=== PATIENT | male | born 1935 | race Caucasian/White ===

== ENCOUNTER 2017-10-20 19:35 | Inpatient (IN) | payer MEDICARE, BC ==
[~2017-10-20] VITALS: Ht 167.6 cm; Wt 67.4 kg
[~2017-10-20 19:35] MED LIST: AMLO5TAB22 PO; AUGM875T PO; BEDSMIS4; CARV3.12 PO; CYAN1000P IM; FISH120014 PO; LISI-366 PO; PLAV75TA PO; SIMV10 PO; TAMS0.4C67 PO
[2017-10-20] MEDS ORDERED: SODIUM CHLOR 0.9% 1000 ML INJ 1,000 ML IV SCH (19:36)
[2017-10-20 19:39] VITALS: BP 187/104; PULSE 97; RESP 18; TEMP 98.4; O2SAT 97
[2017-10-20] MEDS ORDERED: SODIUM CHLORIDE 0.9% FLUSH 10 ML FLUSH IV FLUSH PRN ×2 (19:45→23:00)
[2017-10-20 20:06] VITALS: BP 175/94; PULSE 100; RESP 18; O2SAT 99
[2017-10-20 20:13] LABS: AUTOMATED NEUTROPHIL # 14.6 TH/MM3 (1.8-7.7); BASOPHIL # 0.1 TH/MM3 (0-0.2); BASOPHIL % 0.6 % (0.0-2.0); EOSINOPHIL % 0.1 % (0.0-4.0); HEMATOCRIT 45.9 % (39.0-51.0); HEMOGLOBIN 16.1 GM/DL (13.0-17.0); LYMPH % 5.4 % (9.0-44.0); LYMPHOCYTE # 0.9 TH/MM3 (1.0-4.8); MEAN CELL VOLUME 91.2 FL (80.0-100.0); MEAN CORPUSCULAR HGB CONC 35.2 % (32.0-36.0); MEAN PLATELET VOLUME 8.9 FL (7.0-11.0); MONO % 3.8 % (0.0-8.0); MONOCYTE # 0.6 TH/MM3 (0-0.9); NEUT % 90.1 % (16.0-70.0); PLATELET COUNT 263 TH/MM3 (150-450); RED BLOOD COUNT 5.03 MIL/MM3 (4.50-5.90); RED CELL DISTRIBUTION WIDTH 12.4 % (11.6-17.2); WHITE BLOOD COUNT 16.2 TH/MM3 (4.0-11.0)
[2017-10-20 20:21] LABS: CHLORIDE 99 MEQ/L (98-107); SODIUM (NA) 135 MEQ/L (136-145)
[2017-10-20 20:24] LABS: ALBUMIN 3.8 GM/DL (3.4-5.0); BICARBONATE 27.2 MEQ/L (21.0-32.0); CALCIUM 8.9 MG/DL (8.5-10.1); GLUCOSE,RANDOM 105 MG/DL (74-106)
[2017-10-20 20:25] LABS: BLOOD UREA NITROGEN 12 MG/DL (7-18)
[2017-10-20 20:27] LABS: ALT (GPT) 18 U/L (12-78); AST (GOT) 11 U/L (15-37)
[2017-10-20 20:28] LABS: CREATININE 0.88 MG/DL (0.60-1.30); GLOMERULAR FILTRATION RATE 83 ML/MIN (>89)
[2017-10-20 20:29] LABS: TOTAL BILIRUBIN ADULT 0.5 MG/DL (0.2-1.0); TOTAL PROTEIN 7.8 GM/DL (6.4-8.2)
[2017-10-20 20:30] LABS: ALKALINE PHOSPHATASE 85 U/L (45-117)
[2017-10-20 20:33] LABS: TROPONIN I LESS THAN 0.02 NG/ML (0.02-0.05)
[2017-10-20] MEDS ORDERED: ALBUAER3 INH (20:38)
[2017-10-20] MEDS ORDERED: AMLO5TAB2 PO (20:38)
[2017-10-20] MEDS ORDERED: SIMV10TA PO (20:38)
[2017-10-20] MEDS ORDERED: ASPI-516 CHEW (20:38)
[2017-10-20] MEDS ORDERED: CARV3.12 PO (20:38)
[2017-10-20] MEDS ORDERED: LISI-515 PO (20:38)
[2017-10-20] MEDS ORDERED: TAMS5CAP PO (20:38)
[2017-10-20 20:42] LABS: BILIRUBIN, URINE NEG (NEG); BLOOD, URINE TRACE (NEG); GLUCOSE,URINE NEG (NEG); KETONE, URINE TRACE mg/dL (NEG); NITRITE,URINE NEG (NEG); URINE COLOR YELLOW (YELLW/STRAW); URINE LEUKOCYTE ESTERASE NEG (NEG)
[2017-10-20] MEDS ORDERED: LEVOFLOXACIN 500 MG PREMIX INJ 100 ML IV ONE (21:00)
[2017-10-20 21:03] LABS: AMORPHOUS SEDIMENT, URINE SMALL; RBC, URINE 0-3 /hpf (0-3); SQUAMOUS EPITHELIAL CELL URINE 0-5 /hpf (0-5); WBC, URINE 0-2 /hpf (0-5)
[2017-10-20 21:10] LABS: INTERNATIONAL NORMALIZED RATIO 1.1 RATIO; PROTHROMBIN TIME - PATIENT 10.7 SEC (9.8-11.6)
--- NOTE | 2017-10-20 22:06 | RADRPT ---
EXAM DATE/TIME: 10/20/2017 21:50 [facility] COMPARISON: CHEST SINGLE AP, March 12, 2016, 7:54. INDICATIONS : Syncopal episode. MEDICAL HISTORY : normal pressure hydrocephalus, hypertension, pulmonary sarcoidosis SURGICAL HISTORY : Stents, Shunt. ENCOUNTER: Initial ACUITY: 1 day PAIN SCORE: 0/10 LOCATION: Bilateral chest FINDINGS: Cardiomegaly. Left basilar linear scarring. Minimal linear scarring right upper lobe. Osseous structu res are intact. CONCLUSION: No acute disease. Rod Singh MD on October 20, 2017 at 22:05 Board Certified Radiologist. This report was verified electronically.
[2017-10-20 22:46] VITALS: BP 142/68; PULSE 89; RESP 16; O2SAT 98
[2017-10-20] MEDS ORDERED: NALOXONE HCL 0.4 MG/ML AMP IV PUSH PRN (23:00)
[2017-10-21] VITALS: BP 160/76; PULSE 74; RESP 18; TEMP 97.2; O2SAT 94
--- NOTE | 2017-10-21 00:15 | PD ---
HPI . Generalized weakness Chief Complaint: General Weakness Time Seen by Provider: 19:36 Travel History International Travel<30 days: No Contact w/Intl Traveler<30days: No Traveled to known affect area: No History of Present Illness HPI 8-year-old male presents with having discomfort, generalized weakness, unable to raise himself up off a chair, and suprapubic complaint of pain. Patient has expressive aphasia and mild dementia has difficulty communicating. The above is as per hand signals and also communication with patient's . Patient and live in assisted living facility, patient usually cares for himself quite well and is able to ambulate easily. Today's weakness is a new development. No documented fever PFSH Past Medical History Narrative Medical Past medical history reviewed Asthma: No Heart Rhythm Problems: No Cancer: No Cardiovascular Problems: Yes (LBBB) High Cholesterol: No Chest Pain: No Congestive Heart Failure: No COPD: No Diabetes: No Diminished Hearing: Yes (EGEGIK) Hepatitis: No Hiatal Hernia: No Hypertension: Yes Medical other: Yes (UNBALANCED ,FALLING) Musculoskeletal: No Neurologic: Yes (NORMAL PRESSURE HYDROCEPHALUS ) Psychiatric: No Reproductive: No Respiratory: Yes (PULMONARY SARCOIDOSIS) Sleep Apnea: No Thyroid Disease: No Tetanus Vaccination: Unknown ?: Not Past Surgical History Abdominal Surgery: No Cardiac Surgery: No Ear Surgery: No Endocrine Surgery: No Eye Surgery: No Genitourinary Surgery: No Gynecologic Surgery: No Neurologic Surgery: No Oral Surgery: No Pacemaker: No Thoracic Surgery: No Other Surgery: Yes (SHUNT ) Social History Alcohol Use: No Tobacco Use: No Substance Use: No Allergies-Medications (Allergen,Severity, Reaction): Coded Allergies: MRI PRECAUTION (Verified Allergy, Unknown, shunt, 03/12/16) Reported Meds & Prescriptions Reported Meds & Active Scripts Active Reported Aspirin 81 Mg Chew 81 Mg CHEW DAILY Proair Hfa 8.5 GM Inh (Albuterol Sulfate) 90 Mcg/Act Aer 2 Puff INH Q4-6H PRN 108 mcg/actuation Simvastatin 10 Mg Tab 10 Mg PO DAILY Lisinopril 20 Mg Tab 20 Mg PO DAILY Flomax (Tamsulosin HCl) 0.4 Mg Cap 0.4 Mg PO HS Carvedilol 3.125 Mg Tab 3.125 Mg PO BID Amlodipine (Amlodipine Besylate) 5 Mg Tab 5 Mg PO DAILY Narrative Medication Allergies and medications reviewed. MRI precaution noted Review of Systems General / Constitutional: No: Fever Eyes: No: Visual changes HENT: No: Headaches Cardiovascular: No: Chest Pain or Discomfort Respiratory: No: Shortness of Breath Gastrointestinal: No: Abdominal Pain Genitourinary: No: Dysuria Musculoskeletal: Positive: Weakness, No: Pain Skin: No Rash Neurologic: No: Weakness Psychiatric: No: Depression Endocrine: No: Polydipsia Hematologic/Lymphatic: No: Easy Bruising Physical Exam Narrative GENERAL: Awake and alert, pleasant, a phasic, slightly confused. Vital signs afebrile normal and stable SKIN: Warm and dry. Color is normal deficit sinus pallor HEAD: Atraumatic. Normocephalic. EYES: Pupils equal and round. No scleral icterus. No injection or drainage. ENT: No nasal bleeding or discharge. Mucous membranes pink and moist. NECK: Trachea midline. No JVD. Supple nontender full range of motion CARDIOVASCULAR: Regular rate and rhythm. S1-S2 no murmurs rubs gallops RESPIRATORY: No accessory muscle use. Clear to auscultation. Breath sounds equal bilaterally. GASTROINTESTINAL: Abdomen soft, non-tender, nondistended. Hepatic and splenic margins not palpable. MUSCULOSKELETAL: Extremities without clubbing, cyanosis, or edema. No obvious deformities. NEUROLOGICAL: Awake and alert. Slightly confused, also communicating via hand signals and motioning secondary to aphasia, otherwise no gross focal deficits PSYCHIATRIC: Appropriate mood and affect; pleasant Data Data Last Documented VS Vital Signs Date Time Temp Pulse Resp B/P (MAP) Pulse Ox O2 Delivery O2 Flow Rate FiO2 10/20/17 22:46 89 16 142/68 (92) 98 Room Air 10/20/17 19:39 98.4 Orders Orders Electrocardiogram (10/20/17 19:36) Ammonia (10/20/17 19:36) Complete Blood Count With Diff (10/20/17 19:36) Comprehensive Metabolic Panel (10/20/17 19:36) Creatine Kinase (Cpk) (10/20/17 19:36) Prothrombin Time / Inr (Pt) (10/20/17 19:36) Act Partial Throm Time (Ptt) (10/20/17 19:36) Troponin I (10/20/17 19:36) Thyroid Stimulating Hormone (10/20/17 19:36) Urinalysis - C+S If Indicated (10/20/17 19:36) Blood Culture (10/20/17 19:36) Chest, Single Ap (10/20/17 19:36) Blood Glucose (10/20/17 19:36) Ecg Monitoring (10/20/17 19:36) Iv Access Insert/Monitor (10/20/17 19:36) Oximetry (10/20/17 19:36) Sodium Chloride 0.9% Flush (Ns Flush) (10/20/17 19:45) Sodium Chlor 0.9% 1000 Ml Inj (Ns 1000 M (10/20/17 19:36) B-Type Natriuretic Peptide (10/20/17 19:36) Lactic Acid (10/20/17 19:36) Levofloxacin 500 Mg Premix Inj (Levaquin (10/20/17 21:00) Admit Order (Ed Use Only) (10/20/17 22:53) Place In Observation (10/20/17 ) Vital Signs (Adult) Q4H (10/20/17 22:52) Activity Oob Ad Darcy (10/20/17 22:52) Intake + Output ALEKSANDR.QSHIFT (10/20/17 22:52) Diet Heart Healthy (10/21/17 Breakfast) Sodium Chlor 0.9% 1000 Ml Inj (Ns 1000 M (10/20/17 22:52) Sodium Chloride 0.9% Flush (Ns Flush) (10/20/17 23:00) Sodium Chloride 0.9% Flush (Ns Flush) (10/21/17 09:00) Basic Metabolic Panel (Bmp) (10/21/17 06:00) Complete Blood Count With Diff (10/21/17 06:00) Naloxone Inj (Narcan Inj) (10/20/17 23:00) Consult Pt Eval & Treat (10/20/17 22:52) Labs Laboratory Tests Test 10/20/17 20:00 10/20/17 20:20 White Blood Count 16.2 TH/MM3 Red Blood Count 5.03 MIL/MM3 Hemoglobin 16.1 GM/DL Hematocrit 45.9 % Mean Corpuscular Volume 91.2 FL Mean Corpuscular Hemoglobin 32.0 PG Mean Corpuscular Hemoglobin Concent 35.2 % Red Cell Distribution Width 12.4 % Platelet Count 263 TH/MM3 Mean Platelet Volume 8.9 FL Neutrophils (%) (Auto) 90.1 % Lymphocytes (%) (Auto) 5.4 % Monocytes (%) (Auto) 3.8 % Eosinophils (%) (Auto) 0.1 % Basophils (%) (Auto) 0.6 % Neutrophils # (Auto) 14.6 TH/MM3 Lymphocytes # (Auto) 0.9 TH/MM3 Monocytes # (Auto) 0.6 TH/MM3 Eosinophils # (Auto) 0.0 TH/MM3 Basophils # (Auto) 0.1 TH/MM3 CBC Comment AUTO DIFF Differential Comment AUTO DIFF CONFIRMED Platelet Estimate NORMAL Platelet Morphology Comment NORMAL Red Cell Morphology Comment NORMAL Prothrombin Time 10.7 SEC Prothromb Time International Ratio 1.1 RATIO Activated Partial Thromboplast Time 27.3 SEC Blood Urea Nitrogen 12 MG/DL Creatinine 0.88 MG/DL Random Glucose 105 MG/DL Total Protein 7.8 GM/DL Albumin 3.8 GM/DL Calcium Level 8.9 MG/DL Alkaline Phosphatase 85 U/L Aspartate Amino Transf (AST/SGOT) 11 U/L Alanine Aminotransferase (ALT/SGPT) 18 U/L Total Bilirubin 0.5 MG/DL Sodium Level 135 MEQ/L Potassium Level 3.5 MEQ/L Chloride Level 99 MEQ/L Carbon Dioxide Level 27.2 MEQ/L Anion Gap 9 MEQ/L Estimat Glomerular Filtration Rate 83 ML/MIN Lactic Acid Level 1.3 mmol/L Ammonia 16 MCMOL/L Total Creatine Kinase 60 U/L Troponin I LESS THAN 0.02 NG/ML B-Type Natriuretic Peptide 144 PG/ML Thyroid Stimulating Hormone 3rd Gen 0.837 uIU/ML Urine Collection Type CATH Urine Color YELLOW Urine Turbidity SL CLOUDY Urine pH 8.0 Urine Specific [place] 1.015 Urine Protein NEG mg/dL Urine Glucose (UA) NEG mg/dL Urine Ketones TRACE mg/dL Urine Occult Blood TRACE Urine Nitrite NEG Urine Bilirubin NEG Urine Urobilinogen 0.2 MG/DL Urine Leukocyte Esterase NEG Urine RBC 0-3 /hpf Urine WBC 0-2 /hpf Urine Squamous Epithelial Cells 0-5 /hpf Urine Amorphous Sediment SMALL Microscopic Urinalysis Comment CATH-CULT NOT IND MDM Medical Decision Making Medical Screen Exam Complete: Yes Emergency Medical Condition: Yes Medical Record Reviewed: Yes Differential Diagnosis Generalized weakness, urinary retention, infection Narrative Course Patient's limited examination reviewed, patient has elevated white blood cell count 16. Schafer catheter placed patient had greater than 1000 postvoid residual volume. Patient treated empirically treated with Levaquin secondary to having recent respiratory complaints and urinary retention and possible urinary tract infection. Perusal of patient's medical record revealed patient has a medical shunt, CT head reveals good shunt placement with no significant ventriculomegaly consistent with adequate shunt functioning Diagnosis Primary Impression: Leukocytosis Qualified Codes: D72.829 - Elevated white blood cell count, unspecified Additional Impressions: Weakness Urinary retention Admitting Information Admitting Physician Requests: Jone Paula MD Oct 21, 2017 00:15
[2017-10-21 00:16] VITALS: BP 142/65; PULSE 89; RESP 16; O2SAT 99
--- NOTE | 2017-10-21 00:53 | RADRPT ---
EXAM DATE/TIME: 10/21/2017 00:30 [facility] COMPARISON: CT BRAIN W/O CONTRAST, March 12, 2016, 8:02. INDICATIONS : Altered mental status. RADIATION DOSE: 40.05 CTDIvol (mGy) ; Patient motion MEDICAL HISTORY : Cardiovascular disease. Hypertension. Hydrocephalus. Pulmonary sarcoidosis. SURGICAL HISTORY : Shunt. ENCOUNTER: Initial ACUITY: 1 day PAIN SCALE: 0/10 LOCATION: cranial TECHNIQUE: Multiple contiguous axial images were obtained of the head. Using automated exposure control and adj ustment of the mA and/or kV according to patient size, radiation dose was kept as low as reasonably a chievable to obtain optimal diagnostic quality images. DICOM format image data is available electro nically for review and comparison. FINDINGS: CEREBRUM: The ventricles are prominent, stable from February 2016. Right frontal ventriculostomy catheter tip in t he left frontal horn, stable in location. No evidence of midline shift, mass lesion, hemorrhage or a cute infarction. No extra-axial fluid collections are seen. POSTERIOR FOSSA: The cerebellum and brainstem are intact. The 4th ventricle is midline. The cerebellopontine angle i s unremarkable. EXTRACRANIAL: The visualized portion of the orbits is intact. SKULL: The calvaria is intact. No evidence of skull fracture. CONCLUSION: 1. No acute findings in the brain. 2. Stable ventricular prominence with HAND I THERMAL CUTTER shunt in place. Ruddy Jones MD on October 21, 2017 at 0:50 Board Certified Radiologist. This report was verified electronically.
[2017-10-21] MEDS: SODIUM CHLOR 0.9% 1000 ML INJ 1,000 ML IV SCH ×2 (02:03→18:37)
[2017-10-21 07:00] LABS: BASOPHIL % 0.2 % (0.0-2.0); EOSINOPHIL # 0.1 TH/MM3 (0-0.4); HEMATOCRIT 40.6 % (39.0-51.0); HEMOGLOBIN 13.9 GM/DL (13.0-17.0); LYMPH % 8.3 % (9.0-44.0); LYMPHOCYTE # 1.2 TH/MM3 (1.0-4.8); MEAN CELL VOLUME 91.9 FL (80.0-100.0); MEAN CORPUSCULAR HEMOGLOBIN 31.4 PG (27.0-34.0); MEAN CORPUSCULAR HGB CONC 34.2 % (32.0-36.0); MEAN PLATELET VOLUME 8.9 FL (7.0-11.0); MONO % 7.9 % (0.0-8.0); MONOCYTE # 1.1 TH/MM3 (0-0.9); NEUT % 82.6 % (16.0-70.0); PLATELET COUNT 231 TH/MM3 (150-450); RED BLOOD COUNT 4.42 MIL/MM3 (4.50-5.90); RED CELL DISTRIBUTION WIDTH 12.7 % (11.6-17.2); WHITE BLOOD COUNT 14.4 TH/MM3 (4.0-11.0)
[2017-10-21 07:23] LABS: BICARBONATE 26.1 MEQ/L (21.0-32.0); CALCIUM 8.2 MG/DL (8.5-10.1)
[2017-10-21 07:27] LABS: CREATININE 0.74 MG/DL (0.60-1.30)
[2017-10-21 08:00] VITALS: BP 135/81; PULSE 94; RESP 18; TEMP 97.2; O2SAT 96
[2017-10-21] MEDS: SODIUM CHLORIDE 0.9% FLUSH 10 ML FLUSH IV FLUSH SCH ×2 (08:59→21:33)
--- NOTE | 2017-10-21 09:59 | HHI.HP ---
[facility] Service [place] Hospitalists Primary Care Physician No Primary Care Physician Admission Diagnosis Urinary Retention, Leukocytosis, Generalized Weakness, altered mental status Diagnoses: Chief Complaint: Altered mental status and generalized weakness Travel History International Travel<30 Days: No Contact w/Intl Traveler <30 Da: No Traveled to Known Affected Are: No History of Present Illness This is an 82-year-old male past medical history of normal pressure hydrocephalus status post STORE MERCHANDISER shunt placement, hypertension, coronary disease status post 4 stent placement, and BPH who presented with generalized weakness and altered mental status. Patient is a very poor historian. He stated to me that he felt unbalanced but could not give me further details. When asked in regards to him have any urinating problems he stated that he could not urinate since yesterday. Otherwise he has no other complaints. He is able to tell me his full name and location. He cannot tell me the date. I spoke to his over the phone Mrs. Malathi Hess. She stated that 1 month ago patient had upper respiratory infection which she was given antibiotics for 1 week but he did not fully recover. She then brought him to see his PCP 1 week ago due to generalized weakness, cough, sore throat and emesis. She feels like patient coughs after eating food. She is concerned that he may be aspirating. She later stated that a couple days ago patient seem altered. His speech seems slow. She denies any focal neurological deficits that she noticed. She feels like he is better today but really cannot tell me if this was his baseline. She also stated that patient did not urinate yesterday but after he had a catheterization in the ED he has not had any problems since then. She said at baseline patient does not have good balance. She stated that 5 months ago he was walking with a walker but was put in a wheelchair due to his multiple falls and imbalance. denied any history of dementia or cognitive disorder. Other review systems difficult to obtain due to patient being a poor historian. Past Family Social History Past Medical History Hypertension Coronary artery disease Sarcoidosis Normal pressure hydrocephalus Macular degenerative disease Past Surgical History PCI for stent placement STORE MERCHANDISER shunt placement Reported Medications Reported Meds & Active Scripts Active Reported Aspirin 81 Mg Chew 81 Mg CHEW DAILY Proair Hfa 8.5 GM Inh (Albuterol Sulfate) 90 Mcg/Act Aer 2 Puff INH Q4-6H PRN 108 mcg/actuation Simvastatin 10 Mg Tab 10 Mg PO DAILY Lisinopril 20 Mg Tab 20 Mg PO DAILY Flomax (Tamsulosin HCl) 0.4 Mg Cap 0.4 Mg PO HS Carvedilol 3.125 Mg Tab 3.125 Mg PO BID Amlodipine (Amlodipine Besylate) 5 Mg Tab 5 Mg PO DAILY Allergies: Coded Allergies: MRI PRECAUTION (Verified Allergy, Unknown, shunt, 03/12/16) Active Ordered Medications Current Medications Sodium Chloride (NS Flush) 2 ml UNSCH PRN IV FLUSH FLUSH AFTER USING IV ACCESS ; Start 10/20/17 at 19:45; Stop 10/20/17 at 22:57; Status DC Sodium Chloride 1,000 ml @ 125 mls/hr Q8H IV Last administered on 10/20/17at 21: 18; Start 10/20/17 at 19:36; Stop 10/20/17 at 22:57; Status DC Levofloxacin/ Dextrose 100 ml @ 100 mls/hr ONCE ONCE IV Last administered on 10/20/17at 21:18; Start 10/20/17 at 21:00; Stop 10/20/17 at 21:59; Status DC Sodium Chloride 1,000 ml @ 75 mls/hr [id number] IV Last administered on 10/21/17at 02:03; Start 10/20/17 at 22:52 Sodium Chloride (NS Flush) 2 ml UNSCH PRN IV FLUSH FLUSH AFTER USING IV ACCESS ; Start 10/20/17 at 23:00 Sodium Chloride (NS Flush) 2 ml BID IV FLUSH ; Start 10/21/17 at 09:00 Naloxone HCl (Narcan Inj) 0.4 mg UNSCH PRN IV PUSH SEE LABEL COMMENTS; Start at 23:00 Family History Patient poor historian difficulty in obtaining past family history. Social History Denies any tobacco, alcohol, illicit drug use. Physical Exam Vital Signs Vital Signs Date Time Temp Pulse Resp B/P (MAP) Pulse Ox O2 Delivery O2 Flow Rate FiO2 10/21/17 08:00 97.2 94 18 135/81 (99) 96 3/4/18 01:53 10/21/17 00:16 89 16 142/65 (90) 99 Room Air 10/21/17 00:00 97.2 74 18 160/76 (104) 94 10/20/17 22:46 89 16 142/68 (92) 98 Room Air 10/20/17 20:06 100 18 175/94 (121) 99 Room Air 10/20/17 19:42 18 97 10/20/17 19:39 98.4 97 18 187/104 (131) 97 Physical Exam GENERAL: This is a well-nourished, well-developed patient, in no apparent distress who is sitting up in bed. SKIN: No rashes, ecchymoses or lesions. Cool and dry. HEAD: Atraumatic. Normocephalic. No temporal or scalp tenderness. EYES: Pupils equal round and reactive. Extraocular motions intact. No scleral icterus. No injection or drainage. ENT: Nose without bleeding, purulent drainage or septal hematoma. Throat without erythema, tonsillar hypertrophy or exudate. Uvula midline. Airway patent. NECK: Trachea midline. No JVD or lymphadenopathy. Supple, nontender, no meningeal signs. CARDIOVASCULAR: Regular rate and rhythm without murmurs, gallops, or rubs. RESPIRATORY: Clear to auscultation. Breath sounds equal bilaterally. No wheezes , rales, or rhonchi. GASTROINTESTINAL: Abdomen soft, non-tender, nondistended. No hepato-splenomegaly , or palpable masses. No guarding. MUSCULOSKELETAL: Extremities without clubbing, cyanosis, or edema. No joint tenderness, effusion, or edema noted. No calf tenderness. Negative Homans sign bilaterally. NEUROLOGICAL: Awake and alert. Cranial nerves II through XII intact. Motor and sensory grossly within normal limits. Five out of 5 muscle strength in all muscle groups. Normal speech but slow. Laboratory Laboratory Tests Test 10/20/17 20:00 10/20/17 20:20 10/21/17 05:44 White Blood Count 16.2 14.4 Red Blood Count 5.03 4.42 Hemoglobin 16.1 13.9 Hematocrit 45.9 40.6 Mean Corpuscular Volume 91.2 91.9 Mean Corpuscular Hemoglobin 32.0 31.4 Mean Corpuscular Hemoglobin Concent 35.2 34.2 Red Cell Distribution Width 12.4 12.7 Platelet Count 263 231 Mean Platelet Volume 8.9 8.9 Neutrophils (%) (Auto) 90.1 82.6 Lymphocytes (%) (Auto) 5.4 8.3 Monocytes (%) (Auto) 3.8 7.9 Eosinophils (%) (Auto) 0.1 1.0 Basophils (%) (Auto) 0.6 0.2 Neutrophils # (Auto) 14.6 12.0 Lymphocytes # (Auto) 0.9 1.2 Monocytes # (Auto) 0.6 1.1 Eosinophils # (Auto) 0.0 0.1 Basophils # (Auto) 0.1 0.0 CBC Comment AUTO DIFF AUTO DIFF Differential Comment AUTO DIFF CONFIRMED AUTO DIFF CONFIRMED Platelet Estimate NORMAL Platelet Morphology Comment NORMAL Red Cell Morphology Comment NORMAL Prothrombin Time 10.7 Prothromb Time International Ratio 1.1 Activated Partial Thromboplast Time 27.3 Blood Urea Nitrogen 12 12 Creatinine 0.88 0.74 Random Glucose 105 82 Total Protein 7.8 Albumin 3.8 Calcium Level 8.9 8.2 Alkaline Phosphatase 85 Aspartate Amino Transf (AST/SGOT) 11 Alanine Aminotransferase (ALT/SGPT) 18 Total Bilirubin 0.5 Sodium Level 135 138 Potassium Level 3.5 3.3 Chloride Level 99 101 Carbon Dioxide Level 27.2 26.1 Anion Gap 9 11 Estimat Glomerular Filtration Rate 83 101 Lactic Acid Level 1.3 Ammonia 16 Total Creatine Kinase 60 Troponin I LESS THAN 0.02 B-Type Natriuretic Peptide 144 Thyroid Stimulating Hormone 3rd Gen 0.837 Urine Collection Type CATH Urine Color YELLOW Urine Turbidity SL CLOUDY Urine pH 8.0 Urine Specific [place] 1.015 Urine Protein NEG Urine Glucose (UA) NEG Urine Ketones TRACE Urine Occult Blood TRACE Urine Nitrite NEG Urine Bilirubin NEG Urine Urobilinogen 0.2 Urine Leukocyte Esterase NEG Urine RBC 0-3 Urine WBC 0-2 Urine Squamous Epithelial Cells 0-5 Urine Amorphous Sediment SMALL Microscopic Urinalysis Comment CATH-CULT NOT IND Date/Time Source Procedure Growth Status 10/20/17 20:10 Blood Peripheral Aerobic Blood Culture Pending Received 10/20/17 20:10 Blood Peripheral Anaerobic Blood Culture Pending Received Result Diagram: 10/21/17 0544 10/21/17 0544 Caprini VTE Risk Assessment Caprini VTE Risk Assessment: Mod/High Risk (score >= 2) Caprini Risk Assessment Model Point Value = 1 Point Value = 2 Point Value = 3 Point Value = 5 Age 41-60 Minor surgery BMI > 25 kg/m2 Swollen legs Varicose veins or History of unexplained or recurrent spontaneous Oral contraceptives or hormone replacement Sepsis (< 1 month) Serious lung disease, including pneumonia (< 1 month) Abnormal pulmonary function Acute myocardial infarction Congestive heart failure (< 1 month) History of inflammatory bowel disease Medical patient at bed rest Age 61-74 Arthroscopic surgery Major open surgery (> 45 min) Laparoscopic surgery (> 45 min) Malignancy Confined to bed (> 72 hours) Immobilizing plaster cast Central venous access Age >= 75 History of VTE Family history of VTE Factor V Leiden Prothrombin [id number] Lupus anticoagulant Anticardiolipin antibodies Elevated serum homocysteine Heparin-induced thrombocytopenia Other congenital or acquired thrombophilia Stroke (< 1 month) Elective arthroplasty Hip, pelvis, or leg fracture Acute spinal cord injury (< 1 month) Prophylaxis Regimen Total Risk Factor Score Risk Level Prophylaxis Regimen 0-1 Low Early ambulation 2 Moderate Order ONE of the following: *Sequential Compression Device (SCD) *Heparin 5000 units SQ BID 3-4 Higher Order ONE of the following medications: *Heparin 5000 units SQ TID *Enoxaparin/Lovenox 40 mg SQ daily (WT < 150 kg, CrCl > 30 mL/min) *Enoxaparin/Lovenox 30 mg SQ daily (WT < 150 kg, CrCl > 10-29 mL/min) *Enoxaparin/Lovenox 30 mg SQ BID (WT < 150 kg, CrCl > 30 mL/min) AND/OR *Sequential Compression Device (SCD) 5 or more Highest Order ONE of the following medications: *Heparin 5000 units SQ TID (Preferred with Epidurals) *Enoxaparin/Lovenox 40 mg SQ daily (WT < 150 kg, CrCl > 30 mL/min) *Enoxaparin/Lovenox 30 mg SQ daily (WT < 150 kg, CrCl > 10-29 mL/min) *Enoxaparin/Lovenox 30 mg SQ BID (WT < 150 kg, CrCl > 30 mL/min) AND *Sequential Compression Device (SCD) Assessment and Plan Assessment and Plan 82-year-old male who presented with altered mental status and urinary retention Altered mental status/generalized weakness -Patient seems to be back to his baseline per interview with patient's . -CT scan of the brain negative. Labs significant for leukocytosis. Urinalysis negative and chest x-ray negative. On physical exam no focal neurological deficit noted. -Patient does have a STORE MERCHANDISER shunt in. Will need to consult neurologist so that a MRI of the brain can be obtained. Will get EEG, echo, and carotid ultrasound. Will monitor on telemetry. -Consult PT. Leukocytosis 16,000 -He was given a dose of Levaquin in the ED. Urinalysis negative and chest x- ray negative. -No infectious source. WBC improved this morning to 14,000. Will get a mandatory urine culture. -Monitor off antibiotics since there is no infectious source. Blood cultures obtained in the ED pending results. Coughing after oral intake -Consult speech for swallow evaluation. -In the meantime we will keep patient n.p.o. pending results. Patient will be started on IV fluids. Urinary retention -Patient had a straight cath once with 1 L of urine. -Restart his Flomax. We will get an ultrasound of the bladder/kidney. -Strict ins and outs. Hypertension coronary disease status post stent placement/normal pressure hydrocephalus status post STORE MERCHANDISER shunt/sarcoidosis/BPH -Continue with home medication. DVT prophylaxis -Lovenox. Discussed Condition With patient and his Pat Stahl MD Oct 21, 2017 09:59
[2017-10-21] MEDS ORDERED: ALBUTEROL SULFATE 90 MCG/ACT HFA 8 GM INHALER INH PRN (10:00)
--- NOTE | 2017-10-21 10:14 | EKG ---
Date Performed: 10/20/2017 Time Performed: 19:44:29 PTAGE: 82 years EKG: Sinus rhythm WITH FIRST DEGREE AV BLOCK WITH FREQUENT VENTRICULAR PREMATURE COMPLEXES WITH OCCASIONAL SUPRAVENTRI CULAR PREMATURE COMPLEXES MARKED LEFT AXIS DEVIATION LEFT BUNDLE BRANCH BLOCK ABNORMAL ECG PREVIOUS TRACING : 03/12/2016 20.38 DOCTOR: Travis Davis Interpretating Date/Time 10/21/2017 10:13:08
[2017-10-21 12:00] VITALS: BP 146/72; PULSE 72; RESP 18; TEMP 97.9; O2SAT 96
--- NOTE | 2017-10-21 14:07 | RADRPT ---
EXAM DATE/TIME: 10/21/2017 13:20 [facility] COMPARISON: No previous studies available for comparison. INDICATIONS : Cerebrovascular accident. MEDICAL HISTORY : Hypertension. Hearing loss. Macular degeneration. Coronary artery disease. Hydrocephalus. Sarcoid osis. Anxiety. SURGICAL HISTORY : Coronary artery stent. [employer]CH[employer] shunt. ENCOUNTER: Initial ACUITY: 1 day PAIN SCORE: 0/10 LOCATION: Bilateral neck PEAK SYSTOLIC VELOCITIES (cm/sec): ICA/CCA RATIO: Right: 1.9 Left: 2.2 ICA: Right: 137.2 Left: 143.0 CCA: Right: 73.7 Left: 65.5 ECA: Right: 68.1 Left: 69.4 VERTEBRAL: Right: 39.8 antegrade Left: 66.8 antegrade Elevated flow velocities and ICA/CCA ratios have been found to correlate with increased degrees of vessel stenosis, calculated as percentage of diameter relative to a normal segment of distal ICA/CCA FINDINGS: There is elevated velocity in the bilateral internal carotid arteries, with an estimated 50-69% steno sis based on velocity and ratio criteria bilaterally, left worse than right. Antegrade flow in the bi lateral vertebral arteries identified. Soctt scale images demonstrate tortuosity of the carotid arteri es and mild to moderate atherosclerosis. There is a 1.4 x 1.9 x 1.3 cm partially cystic and solid-horace earing mass right mid to lower pole. CONCLUSION: Estimated 50-69% stenosis based on velocity ratio criteria bilaterally. Partially cystic and solid ri ght thyroid nodule. Rod Singh MD on October 21, 2017 at 14:04 Board Certified Radiologist. This report was verified electronically.
--- NOTE | 2017-10-21 14:08 | RADRPT ---
EXAM DATE/TIME: 10/21/2017 13:40 [place] COMPARISON: No previous studies available for comparison. INDICATIONS : Possible obstruction. MEDICAL HISTORY : Hypertension. Hearing loss. Macular degeneration. Coronary artery disease. Hydrocephalus. Sarcoid osis. Anxiety. SURGICAL HISTORY : Coronary artery stent. LADIES' LOCKER ROOM ATTENDANT shunt. ENCOUNTER: Initial ACUITY: 1 day PAIN SCORE: 0/10 LOCATION: Bilateral flank MEASUREMENTS: RIGHT KIDNEY: 9.0 x 4.2 x 4.8 cm LEFT KIDNEY: 9.7 x 4.0 x 4.4 cm FINDINGS: RIGHT KIDNEY: Renal cortex is normal in thickness and echotexture. No hydronephrosis, stone, or mass. LEFT KIDNEY: Renal cortex is normal in thickness and echotexture. No hydronephrosis, stone, or mass. BLADDER: Schafer catheter is noted within a decompressed urinary bladder. CONCLUSION: Normal examination. Rod Singh MD on October 21, 2017 at 14:05 Board Certified Radiologist. This report was verified electronically.
[2017-10-21] MEDS: PRAVASTATIN SOD 20 MG TAB PO SCH (14:53)
[2017-10-21] MEDS: ASPIRIN 81 MG CHEW TAB CHEW SCH (14:53)
[2017-10-21] MEDS: LISINOPRIL 20 MG TAB PO SCH (14:53)
[2017-10-21] MEDS: CARVEDILOL 3.125 MG TAB PO SCH ×2 (14:53→21:33)
[2017-10-21] MEDS: ENOXAPARIN SODIUM 40 MG/0.4 ML SYRINGE SQ SCH (14:58)
[2017-10-21 16:00] VITALS: BP 155/74; PULSE 94; RESP 20; TEMP 98.2; O2SAT 96
[2017-10-21 20:00] VITALS: BP 150/70; PULSE 75; RESP 16; TEMP 98.5; O2SAT 95
[2017-10-21] MEDS: TAMSULOSIN HCL 0.4 MG CAP PO SCH (21:33)
[2017-10-22] VITALS (8 sets, daily range): BP systolic 123–157; BP diastolic 56–89; PULSE 59–81; RESP 14–18; TEMP 97–98.7; O2SAT 95–98
[2017-10-22] MEDS: SODIUM CHLOR 0.9% 1000 ML INJ 1,000 ML IV SCH ×2 (03:26→14:31)
[2017-10-22] MEDS: amLODIPine BESYLATE 5 MG TAB PO SCH (09:48)
[2017-10-22] MEDS: ASPIRIN 81 MG CHEW TAB CHEW SCH (09:48)
[2017-10-22] MEDS: CARVEDILOL 3.125 MG TAB PO SCH ×2 (09:49→20:42)
[2017-10-22] MEDS: LISINOPRIL 20 MG TAB PO SCH (09:49)
[2017-10-22] MEDS: PRAVASTATIN SOD 20 MG TAB PO SCH (09:49)
[2017-10-22] MEDS: SODIUM CHLORIDE 0.9% FLUSH 10 ML FLUSH IV FLUSH SCH ×2 (09:49→20:42)
--- NOTE | 2017-10-22 09:49 | MG ---
cc: Silvestre Bellamy MD [id number] INDICATIONS: SATIN FINISHER shunt, aphasia. MEDICATIONS: Norvasc, aspirin, lisinopril, Lovenox. DESCRIPTION: A 6-8 Hz symmetric, 60 microvolt posterior rhythm is seen. The recording overall is synchronous and symmetric. I do not see any breach rhythm. Hyperventilation is not performed. Photic stimulation is performed without significant posterior driving. IMPRESSION: A normal awake EEG. No evidence for a focal or diffuse abnormality. Silvestre Ruggiero. MD Mia DJM/DL/ , 09:22 AM , 09:29 AM
[2017-10-22] MEDS: ENOXAPARIN SODIUM 40 MG/0.4 ML SYRINGE SQ SCH (09:50)
--- NOTE | 2017-10-22 12:40 | HHI.PR ---
Subjective Remarks Patient seen and evaluated today in follow-up for weakness with urinary retention. No new events overnight. Patient continues to require physical therapy for activity as he is very weak Mental status appears to have returned to baseline after relief of urinary retention. EEG is normal Objective Vitals Vital Signs Date Time Temp Pulse Resp B/P (MAP) Pulse Ox O2 Delivery O2 Flow Rate FiO2 10/22/17 09:52 97.0 81 14 138/70 (92) 97 10/22/17 04:00 98.6 72 16 123/56 (78) 95 10/22/17 00:00 98.6 70 16 127/60 (82) 95 10/21/17 20:00 98.5 75 16 150/70 (96) 95 10/21/17 16:00 98.2 94 20 155/74 (101) 96 I/O 10/21/17 10/21/17 10/21/17 10/22/17 10/22/17 10/22/17 07:00 15:00 23:00 07:00 15:00 23:00 Intake Total 1380 ml 0 ml 825 ml 1200 ml Output Total 1250 ml 1000 ml Balance 1380 ml -1250 ml 825 ml 200 ml Intake Oral 180 ml 0 ml 425 ml IV Total 1200 ml 400 ml 1200 ml Output Urine Total 1250 ml 1000 ml # Voids 0 # Bowel Movements 0 0 Result Diagram: 10/21/17 0544 10/21/17 0544 Imaging Last Impressions Renal Ultrasound 10/21/17 0000 Signed Impressions: Service Date/Time: Saturday, October 21, 2017 13:40 - CONCLUSION: Normal examination. Rod Singh MD Head CT 10/21/17 0000 Signed Impressions: Service Date/Time: Saturday, October 21, 2017 00:30 - CONCLUSION: 1. No acute findings in the brain. 2. Stable ventricular prominence with DOT NET ARCHITECT shunt in place. Ruddy Jones MD Carotid Artery Ultrasound 10/21/17 0000 Signed Impressions: Service Date/Time: Saturday, October 21, 2017 13:20 - CONCLUSION: Estimated 50-69% % stenosis based on velocity ratio criteria bilaterally. Partially cystic and solid right thyroid nodule. Rod Singh MD Chest X-Ray 10/20/17 193 Signed Impressions: Service Date/Time: Friday, October 20, 2017 21:50 - CONCLUSION: No acute disease. Rod Singh MD Objective Remarks GENERAL: This is a well-nourished, well-developed patient, in no apparent distress. CARDIOVASCULAR: Regular rate and rhythm without murmurs, gallops, or rubs. RESPIRATORY: Clear to auscultation. Breath sounds equal bilaterally. No wheezes , rales, or rhonchi. GASTROINTESTINAL: Abdomen soft, non-tender, nondistended. Normal active bowel sounds MUSCULOSKELETAL: Extremities without clubbing, cyanosis, or edema. NEURO: Alert & Oriented x4 to person, place, time, situation. Moves all ext x4 but slowly and weakly A/P Problem List: (1) Weakness ICD Code: R53.1 - Weakness Status: Acute Plan: Rule out stroke, currently patient CT is normal, will follow MRI of the brain (patient with DOT NET ARCHITECT shunt and will need to have this reset after MRI), EEG unremarkable, there is some evidence of carotid stenosis Neurology consult pending Continue Coreg, statin, aspirin, lisinopril (2) Urinary retention ICD Code: R33.9 - Retention of urine, unspecified Status: Acute Plan: With catheter greater than 2 L out daily Renal ultrasound negative, leukocytosis improved, no evidence of UTI Continue Flomax Likely discharge home with catheter (3) HTN (hypertension) ICD Code: I10 - Essential (primary) hypertension Status: Acute Plan: Currently controlled on current medications Discharge Planning Pending workup, discharge home with home health care Vonda Stanford MD Oct 22, 2017 12:40
--- NOTE | 2017-10-22 13:10 | MB ---
cc: Sophia Blank MD DATE OF CONSULT: 10/21/2017 REASON FOR CONSULTATION: Change in mental status. HISTORY OF PRESENT ILLNESS: This is an 82-year-old man with a history of NPH, SPINNER FRAME shunt, placed at [facility] in [place] in 2005, I believe, per his , with history of hypertension, heart disease, 4 stents, BPH, comes in with 2 day history of confusion, alter mental status. He has been having more trouble even feeding himself, walking, has been very confused, as well as trouble talking. He had 1 bout of incontinence per his the other day. He denies any headaches. Denies weakness in one arm or leg. He had a slow grade temperature the other day, as well as a cough and she gave him some ProAir, as well as put a humidifier on and he also complained of a sore throat, which has now resolved. He just ate his dinner. He had no issues swallowing. He was hungry. Somewhat better, but still not at baseline. He does not have a urinary tract infection, but he did have a white count elevation of 16.2 yesterday and 14.4 today. PAST MEDICAL HISTORY: NPH, SPINNER FRAME shunt, hypertension, heart disease, sarcoidosis, macular degeneration. PAST SURGICAL HISTORY: Stent, SPINNER FRAME shunt. HOME MEDICATIONS: Baby aspirin, ProAir, simvastatin, lisinopril, Flomax, carvedilol, amlodipine. ALLERGIES: NO MEDICATION. MRI PRECAUTION DUE TO THE SHUNT. SOCIAL HISTORY: They live in assisted living. He is . There is no tobacco or alcohol history. PHYSICAL EXAMINATION: VITAL SIGNS: His temperature is 98.2, he has been afebrile since here, pulse 94, respiratory rate 20, blood pressure 155/74, saturating at 96%. NECK: Supple. No appreciable bruits. CARDIOVASCULAR: Heart is regular. NEUROLOGIC, PSYCHIATRIC: He is awake and alert. He knows he is in the hospital. He knows he lives in [facility]. He did know the month, he said it was "3." He did not know the date nor the day of the week, but he said it was "18" as far as the year. He knows his date of . He knows his . His speech otherwise is hypophonic, fluent, but very slow to respond. His pupils are reactive. His face is symmetrical. Visual arndt are full. Motor-dennis, he lifts his arms anti-gravity. No drift. [id number] no past pointing. Lifts both legs symmetrically. Toes withdraws. Reflexes trace to 1+. Sensory is normal. His gait is withheld at this time. LABORATORY DATA: Reviewed, white count today is 14.4, decreased from yesterday, 16.2, neutrophils 92.6, no bandemia. Coag panel is normal. Chemistry, today's potassium was a little low, 3.3, sodium 138, calcium 8.2, lactic acid was 1.2. LFTs are fine. Troponin was fine. BNP 144. TSH 0.837. Urine, trace ketones, otherwise, culture is not indicated. Blood cultures no growth thus far. IMAGING: Carotid ultrasound, 50-69% stenosis based on velocity ration criteria. Partially cystic and solid right thyroid nodule. Head CT shows nothing acute, stable ventricle or prominence, with SPINNER FRAME shunt in place. Renal ultrasound was normal. Chest x-ray, no acute disease. IMPRESSION AND PLAN: Change in mental status may be multifactorial, although did have a white count elevation, unclear why there is a white count elevation/leucocytosis. He was given a dose of Levaquin in the emergency department and the white counts improved. Cultures are pending. We will keep him off antibiotics since there is no source. His baseline mental status is not back to where he was at. He will undergo an EEG and echo. The carotic ultrasound is somewhat conflictual, however, I would probably repeat it in 3 months. I doubt it is at 69% bilaterally. I do not want to put him through a CT angiogram unless absolutely necessary at his age. If his mentation does not clear the next 24 hours, I think he needs to be transferred to the [facility] for an MRI of the brain and if possible and then Neurosurgery to reprogram the shunt. Continue to monitor for urinary retention. DVT prophylaxis, Lovenox, PT/OT, and we will see the results of the EEG and echo. If they are unremarkable and his baseline is back to normal, then no MRI needed. However, in the next 24 hours, if he does not clear up to baseline and his can verify what his baseline is, then I would transfer him to [facility] for an MRI brain without contrast, as well as Neurosurgery to reprogram the shunt. I do not think it is a shunt infection, however, certainly if Neurosurgery reprograms the shunt, they can also comment if they think the shunt should be tapped. Please call me with any questions. MD TONY Bowden/MICHAEL , 06:01 PM , 07:15 PM
--- NOTE | 2017-10-22 13:53 | ECHRPT ---
Indication: CVA/TIA CONCLUSIONS Normal left ventricular size. Mild concentric left ventricular hypertrophy. Low normal to mildly reduced left ventricular systolic dysfunction with estimated ejection fraction of 45- 50%. No definite regional wall motion abnormalities. The left atrial size is mildly dilated. Mild mitral valve regurgitation. There is trace tricuspid valve regurgitation. The estimated pulmonary arterial pressure is 30 mmHg. BP: 123 / 56 HR: 72 Rhythm: Sinus MEASUREMENTS (Male / Female) Normal Values Technical Quality:Fair 2D ECHO LV Diastolic Diameter PLAX 4.4 cm 4.2 - 5.9 / 3.9 - 5.3 cm LV Systolic Diameter PLAX 3.9 cm IVS Diastolic Thickness 1.7 cm 0.6 - 1.0 / 0.6 - 0.9 cm LVPW Diastolic Thickness 1.7 cm 0.6 - 1.0 / 0.6 - 0.9 cm LV Relative Wall Thickness 0.8 RV Internal Dim ED PLAX 2.3 cm LVOT Diameter 2.7 cm Aortic Root Diameter 3.4 cm LA Systolic Diameter LX 3.1 cm 3.0 - 4.0 / 2.7 - 3.8 cm M-MODE AV Cusp Separation MM 2.6 cm DOPPLER AV Peak Velocity 97.9 cm/s AV Peak Gradient 3.8 mmHg AV Mean Gradient 2.0 mmHg AV Velocity Time Integral 17.3 cm LVOT Peak Velocity 57.1 cm/s LVOT Peak Gradient 1.3 mmHg LVOT Velocity Time Integral 10.3 cm AV Area Cont Eq vti 3.4 cm AV Area Cont Eq pk 3.3 cm Mitral E Point Velocity 43.9 cm/s Mitral A Point Velocity 90.3 cm/s Mitral E to A Ratio 0.5 LV E' Lateral Velocity 5.9 cm/s Mitral E to LV E' Lateral Ratio 7.5 LV E' Septal Velocity 4.1 cm/s Mitral E to LV E' Septal Ratio 10.7 TR Peak Velocity 221.0 cm/s TR Peak Gradient 19.5 mmHg Right Atrial Pressure 10.0 mmHg Pulmonary Artery Systolic Pressu 29.5 mmHg Right Ventricular Systolic Press 29.5 mmHg PV Peak Velocity 89.5 cm/s PV Peak Gradient 3.2 mmHg FINDINGS LEFT VENTRICLE Normal left ventricular size. Mild concentric left ventricular hypertrophy. Low normal to mildly reduced left ventricular systolic dysfunction with estimated ejection fraction of 45- 50%. No definite regional wall motion abnormalities. RIGHT VENTRICLE Normal right ventricular size and systolic function. LEFT ATRIUM The left atrial size is mildly dilated. RIGHT ATRIUM The right atrial size is normal. ATRIAL SEPTUM The interatrial septum not well visualized. AORTA The aortic root and proximal ascending aorta are not well visualized. MITRAL VALVE Mild mitral valve regurgitation. AORTIC VALVE The aortic valve is not well visualized. Aortic valve sclerosis is present. TRICUSPID VALVE There is trace tricuspid valve regurgitation. The estimated pulmonary arterial pressure is 30 mmHg. PULMONARY VALVE No pulmonary valve regurgitation or stenosis. VESSELS The inferior vena cava was not well visualized. PERICARDIUM No pericardial effusion. Vadim Delacruz MD (Electronically Signed) Final Date:22 October 2017 13:51
[2017-10-22] MEDS ORDERED: PRED1 PO (14:51)
[2017-10-22] MEDS: TAMSULOSIN HCL 0.4 MG CAP PO SCH (20:42)
[2017-10-22] MEDS: ATORVASTATIN 40 MG TAB PO SCH (20:42)
[2017-10-23] VITALS: BP 133/85; PULSE 87; RESP 18; TEMP 98.5; O2SAT 95
[2017-10-23 04:00] VITALS: BP 138/82; PULSE 77; RESP 16; TEMP 98.5; O2SAT 95
[2017-10-23] MEDS: SODIUM CHLOR 0.9% 1000 ML INJ 1,000 ML IV SCH (06:02)
[2017-10-23 06:46] LABS: AUTOMATED NEUTROPHIL # 5.9 TH/MM3 (1.8-7.7); BASOPHIL % 0.4 % (0.0-2.0); EOSINOPHIL # 0.2 TH/MM3 (0-0.4); EOSINOPHIL % 2.1 % (0.0-4.0); HEMATOCRIT 33.4 % (39.0-51.0); LYMPH % 13.7 % (9.0-44.0); LYMPHOCYTE # 1.1 TH/MM3 (1.0-4.8); MEAN CELL VOLUME 92.3 FL (80.0-100.0); MEAN CORPUSCULAR HEMOGLOBIN 33.2 PG (27.0-34.0); MEAN CORPUSCULAR HGB CONC 35.9 % (32.0-36.0); MONO % 10.5 % (0.0-8.0); MONOCYTE # 0.8 TH/MM3 (0-0.9); NEUT % 73.3 % (16.0-70.0); PLATELET COUNT 167 TH/MM3 (150-450); RED BLOOD COUNT 3.62 MIL/MM3 (4.50-5.90); RED CELL DISTRIBUTION WIDTH 12.4 % (11.6-17.2)
[2017-10-23 06:53] LABS: CALCIUM 7.8 MG/DL (8.5-10.1)
[2017-10-23 06:54] LABS: BICARBONATE 27.5 MEQ/L (21.0-32.0)
[2017-10-23 06:57] LABS: CREATININE 0.81 MG/DL (0.60-1.30)
[2017-10-23 08:00] VITALS: BP 161/74; PULSE 78; RESP 18; TEMP 98.1; O2SAT 95
[2017-10-23] MEDS ORDERED: LEVOFLOXACIN 500 MG TAB PO ONE (09:15)
[2017-10-23] MEDS ORDERED: POTASSIUM CHLORIDE 10 MEQ CONTROLLED RELEASE TAB PO ONE (09:15)
[2017-10-23] MEDS: LISINOPRIL 20 MG TAB PO SCH (09:35)
[2017-10-23] MEDS: ASPIRIN 81 MG CHEW TAB CHEW SCH (09:35)
[2017-10-23] MEDS: amLODIPine BESYLATE 5 MG TAB PO SCH (09:35)
[2017-10-23] MEDS: CARVEDILOL 3.125 MG TAB PO SCH ×2 (09:35→21:33)
[2017-10-23] MEDS: SODIUM CHLORIDE 0.9% FLUSH 10 ML FLUSH IV FLUSH SCH ×2 (09:40→21:35)
[2017-10-23] MEDS: ENOXAPARIN SODIUM 40 MG/0.4 ML SYRINGE SQ SCH (10:45)
[2017-10-23 12:00] VITALS: BP 170/82; PULSE 73; RESP 18; TEMP 98.2; O2SAT 95
--- NOTE | 2017-10-23 12:02 | HHI.PR ---
Subjective Remarks Patient is seen today in follow-up for weakness and encephalopathy which appears to be resolved. Likely due to urinary retention and bronchitis. These 2 seemed to be improved with medical management. is at the bedside and reports improvement in clinical symptoms as well Objective Vitals Vital Signs Date Time Temp Pulse Resp B/P (MAP) Pulse Ox O2 Delivery O2 Flow Rate FiO2 10/23/17 08:00 98.1 78 18 161/74 (103) 95 10/23/17 04:00 98.5 77 16 138/82 (100) 95 10/23/17 00:00 98.5 87 18 133/85 (101) 95 10/22/17 23:00 78 10/22/17 20:00 98.7 80 18 140/89 (106) 96 10/22/17 16:00 97.4 68 14 157/74 (101) 98 10/22/17 12:00 97.8 59 14 152/79 (103) 97 I/O 10/22/17 10/22/17 10/22/17 10/23/17 10/23/17 10/23/17 07:00 15:00 23:00 07:00 15:00 23:00 Intake Total 1200 ml 1000 ml 658 ml 1000 ml Output Total 1000 ml 800 ml 1000 ml 800 ml Balance 200 ml 1000 ml -142 ml 0 ml -800 ml Intake Oral 658 ml IV Total 1200 ml 1000 ml 1000 ml Output Urine Total 1000 ml 800 ml 1000 ml 800 ml # Bowel Movements 1 Result Diagram: 10/23/17 0500 10/23/17 0500 Objective Remarks GENERAL: This is a well-nourished, well-developed patient, in no apparent distress. CARDIOVASCULAR: Regular rate and rhythm without murmurs, gallops, or rubs. RESPIRATORY: Clear to auscultation. Breath sounds equal bilaterally. No wheezes , rales, or rhonchi. GASTROINTESTINAL: Abdomen soft, non-tender, nondistended. Normal active bowel sounds MUSCULOSKELETAL: Extremities without clubbing, cyanosis, or edema. NEURO: Alert & Oriented x4 to person, place, time, situation. Moves all ext x4 but slowly and weakly A/P Problem List: (1) Weakness ICD Code: R53.1 - Weakness Status: Acute Plan: Overall improved Neurology consult appreciated We'll continue with Coreg, statin, aspirin and lisinopril (2) Urinary retention ICD Code: R33.9 - Retention of urine, unspecified Status: Acute Plan: status post removal of the Schafer with good urine output (3) HTN (hypertension) ICD Code: I10 - Essential (primary) hypertension Status: Acute Plan: Currently controlled on current medications (4) Bronchitis ICD Code: J40 - Bronchitis, not specified as acute or chronic Plan: Patient with clinical evidence of bronchitis, continue Rocephin empirically, (5) Hypokalemia ICD Code: E87.6 - Hypokalemia Plan: We'll replace with potassium 3.3 Assessment and Plan Overall greatly improved. Did not think a follow-up MRI at this point is necessary. Continue with medical management for now Discharge Planning [facility] Vonda Stanford MD Oct 23, 2017 12:01
[2017-10-23 16:00] VITALS: BP 150/74; PULSE 78; RESP 18; TEMP 98; O2SAT 95
[2017-10-23] MEDS ORDERED: cloNIDine HCL 0.1 MG TAB PO PRN (16:00)
[2017-10-23 20:00] VITALS: BP 119/64; PULSE 68; RESP 20; TEMP 96.8; O2SAT 97
[2017-10-23] MEDS: TAMSULOSIN HCL 0.4 MG CAP PO SCH (21:33)
[2017-10-23] MEDS: ATORVASTATIN 40 MG TAB PO SCH (21:34)
[2017-10-24] VITALS: BP 133/64; PULSE 72; RESP 20; TEMP 98.6; O2SAT 97
[2017-10-24 07:50] VITALS: BP 136/70; PULSE 74; RESP 20; TEMP 97.7; O2SAT 98
[2017-10-24] MEDS: SODIUM CHLORIDE 0.9% FLUSH 10 ML FLUSH IV FLUSH SCH ×2 (09:18→20:19)
[2017-10-24] MEDS: ASPIRIN 81 MG CHEW TAB CHEW SCH (09:18)
[2017-10-24] MEDS: CARVEDILOL 3.125 MG TAB PO SCH ×2 (09:18→20:19)
[2017-10-24] MEDS: amLODIPine BESYLATE 5 MG TAB PO SCH (09:18)
[2017-10-24] MEDS: LISINOPRIL 20 MG TAB PO SCH (09:19)
[2017-10-24] MEDS: ENOXAPARIN SODIUM 40 MG/0.4 ML SYRINGE SQ SCH (11:31)
--- NOTE | 2017-10-24 11:37 | HHI.PR ---
Subjective Remarks Patient seen and evaluated in follow-up for urinary retention, bronchitis. Overall doing well. Discharge plans discussed with patient and spouse Objective Vitals Vital Signs Date Time Temp Pulse Resp B/P (MAP) Pulse Ox O2 Delivery O2 Flow Rate FiO2 10/24/17 07:50 97.7 74 20 136/70 (92) 98 10/24/17 00:00 98.6 72 20 133/64 (87) 97 10/23/17 20:00 96.8 68 20 119/64 (82) 97 10/23/17 16:00 98.0 78 18 150/74 (99) 95 10/23/17 12:00 98.2 73 18 170/82 (111) 95 I/O 10/23/17 10/23/17 10/23/17 10/24/17 10/24/17 10/24/17 07:00 15:00 23:00 07:00 15:00 23:00 Intake Total 1000 ml 455 ml 60 ml Output Total 1000 ml 800 ml 175 ml 275 ml Balance 0 ml -345 ml -175 ml -215 ml Intake Oral 60 ml IV Total 1000 ml 455 ml Output Urine Total 1000 ml 800 ml 175 ml 275 ml # Voids 1 # Bowel Movements 0 1 Result Diagram: 10/23/17 0500 10/23/17 0500 Objective Remarks GENERAL: This is a well-nourished, well-developed patient, in no apparent distress. CARDIOVASCULAR: Regular rate and rhythm without murmurs, gallops, or rubs. RESPIRATORY: Clear to auscultation. Breath sounds equal bilaterally. No wheezes , rales, or rhonchi. GASTROINTESTINAL: Abdomen soft, non-tender, nondistended. Normal active bowel sounds MUSCULOSKELETAL: Extremities without clubbing, cyanosis, or edema. NEURO: Alert & Oriented x4 to person, place, time, situation. Moves all ext x4 but slowly and weakly A/P Problem List: (1) Weakness ICD Code: R53.1 - Weakness Status: Acute Plan: Overall greatly improved Neurology consult appreciated We'll continue with Coreg, statin, aspirin and lisinopril (2) Urinary retention ICD Code: R33.9 - Retention of urine, unspecified Status: Acute Plan: Resolved (3) HTN (hypertension) ICD Code: I10 - Essential (primary) hypertension Status: Acute Plan: Currently controlled on current medications (4) Bronchitis ICD Code: J40 - Bronchitis, not specified as acute or chronic Plan: Patient with clinical evidence of bronchitis, Levaquin (5) Dermatitis, seborrheic ICD Code: L21.9 - Seborrheic dermatitis, unspecified Plan: We'll use topical ketoconazole Family instructed to discuss car current razor Assessment and Plan Overall greatly improved. Did not think a follow-up MRI at this point is necessary. Continue with medical management for now Discharge Planning In a.m. discharge [facility] Vonda Stanford MD Oct 24, 2017 11:37
[2017-10-24] MEDS ORDERED: ATOR40TA16 PO (11:39)
[2017-10-24] MEDS ORDERED: LEVOFLOXACIN 500 MG TAB PO ONE (11:45)
[2017-10-24 11:46] VITALS: BP 129/98; PULSE 81; RESP 20; TEMP 97.1; O2SAT 98
[2017-10-24] MEDS: predniSONE 5 MG TAB PO SCH (12:53)
[2017-10-24 15:50] VITALS: BP 141/73; PULSE 76; RESP 20; TEMP 96.8; O2SAT 97
[2017-10-24 20:00] VITALS: BP 143/65; PULSE 70; RESP 20; TEMP 98.3; O2SAT 97
[2017-10-24] MEDS: ATORVASTATIN 40 MG TAB PO SCH (20:19)
[2017-10-24] MEDS: TAMSULOSIN HCL 0.4 MG CAP PO SCH (20:19)
[2017-10-24] MEDS: KETOCONAZOLE 2% CREAM 15 GM TOPICAL SCH (20:19)
[2017-10-24] MEDS ORDERED: KETOCONAZOLE 2% CREAM 15 GM TOPICAL SCH (21:00)
[2017-10-25] VITALS: BP 149/65; PULSE 71; RESP 20; TEMP 98.7; O2SAT 97
[2017-10-25 07:30] VITALS: BP 150/70; PULSE 74; RESP 20; TEMP 97.9; O2SAT 96
[2017-10-25] MEDS: CARVEDILOL 3.125 MG TAB PO SCH (09:09)
[2017-10-25] MEDS: predniSONE 5 MG TAB PO SCH (09:09)
[2017-10-25] MEDS: ASPIRIN 81 MG CHEW TAB CHEW SCH (09:09)
[2017-10-25] MEDS: SODIUM CHLORIDE 0.9% FLUSH 10 ML FLUSH IV FLUSH SCH (09:09)
[2017-10-25] MEDS: amLODIPine BESYLATE 5 MG TAB PO SCH (09:09)
[2017-10-25] MEDS: LISINOPRIL 20 MG TAB PO SCH (09:09)
[2017-10-25] MEDS: KETOCONAZOLE 2% CREAM 15 GM TOPICAL SCH (09:10)
--- NOTE | 2017-10-25 10:11 | HHI.DCPOC ---
Discharge Care Plan Diagnosis: (1) Bronchitis Goals to Promote Your Health * To prevent worsening of your condition and complications * To maintain your health at the optimal level Directions to Meet Your Goals Take your medications as prescribed Follow your dietary instruction Follow activity as directed Keep your appointments as scheduled Take your immunizations and boosters as scheduled If your symptoms worsen call your PCP, if no PCP go to Urgent Care Center or Emergency Room Smoking is Dangerous to Your Health. Avoid second hand smoke Call the 24-hour hour crisis hotline for domestic abuse at Vonda Stanford MD Oct 25, 2017 10:11
--- NOTE | 2017-10-25 11:12 | HHI.DS ---
Discharge Summary Admission Date Oct 22, 2017 at 12:38 Discharge Date: Oct 25, 2017 Admitting Diagnosis Urinary Retention, Leukocytosis, Generalized Weakness, altered mental status (1) Weakness ICD Code: R53.1 - Weakness Status: Acute (2) Urinary retention ICD Code: R33.9 - Retention of urine, unspecified Status: Acute (3) HTN (hypertension) ICD Code: I10 - Essential (primary) hypertension Status: Acute (4) Bronchitis ICD Code: J40 - Bronchitis, not specified as acute or chronic (5) Dermatitis, seborrheic ICD Code: L21.9 - Seborrheic dermatitis, unspecified Procedures None Brief History - From Admission This is an 82-year-old male past medical history of 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 Patient is a very poor historian. He stated to me that he felt unbalanced but could not give me further details. When asked in regards to him have any urinating problems he stated that he could not urinate since yesterday. Otherwise he has no other complaints. He is able to tell me his full name and location. He cannot tell me the date. I spoke to his over the phone Mrs. Malathi Hess. She stated that 1 month ago patient had upper respiratory infection which she was given antibiotics for 1 week but he did not fully recover. She then brought him to see his PCP 1 week ago due to generalized weakness, cough, sore throat and emesis. She feels like patient coughs after eating food. She is concerned that he may be aspirating. She later stated that a couple days ago patient seem altered. His speech seems slow. She denies any focal neurological deficits that she noticed. She feels like he is better today but really cannot tell me if this was his baseline. She also stated that patient did not urinate yesterday but after he had a catheterization in the ED he has not had any problems since then. She said at baseline patient does not have good balance. She stated that 5 months ago he was walking with a walker but was put in a wheelchair due to his multiple falls and imbalance. denied any history of dementia or cognitive disorder. Other review systems difficult to obtain due to patient being a poor historian. CBC/BMP: 10/23/17 0500 10/23/17 0500 Significant Findings Laboratory Tests Test 10/23/17 05:00 Red Blood Count 3.62 MIL/MM3 (4.50-5.90) Hemoglobin 12.0 GM/DL (13.0-17.0) Hematocrit 33.4 % (39.0-51.0) Neutrophils (%) (Auto) 73.3 % (16.0-70.0) Monocytes (%) (Auto) 10.5 % (0.0-8.0) Calcium Level 7.8 MG/DL (8.5-10.1) Potassium Level 3.3 MEQ/L (3.5-5.1) Imaging Last Impressions Renal Ultrasound 10/21/17 0000 Signed Impressions: Service Date/Time: Saturday, October 21, 2017 13:40 - CONCLUSION: Normal examination. Rod Singh MD Head CT 10/21/17 0000 Signed Impressions: Service Date/Time: Saturday, October 21, 2017 00:30 - CONCLUSION: 1. No acute findings in the brain. 2. Stable ventricular prominence with DELIVERY RN shunt in place. Ruddy Jones MD Carotid Artery Ultrasound 10/21/17 0000 Signed Impressions: Service Date/Time: Saturday, October 21, 2017 13:20 - CONCLUSION: Estimated 50-69% % stenosis based on velocity ratio criteria bilaterally. Partially cystic and solid right thyroid nodule. Rod Singh MD Chest X-Ray 10/20/17 1936 Signed Impressions: Service Date/Time: Friday, October 20, 2017 21:50 - CONCLUSION: No acute disease. Rod Singh MD PE at Discharge GENERAL: This is a well-nourished, well-developed patient, in no apparent distress. CARDIOVASCULAR: Regular rate and rhythm without murmurs, gallops, or rubs. RESPIRATORY: Clear to auscultation. Breath sounds equal bilaterally. No wheezes , rales, or rhonchi. GASTROINTESTINAL: Abdomen soft, non-tender, nondistended. Normal active bowel sounds MUSCULOSKELETAL: Extremities without clubbing, cyanosis, or edema. NEURO: Alert & Oriented x4 to person, place, time, situation. Moves all ext x4 but slowly and weakly Pt update on day of discharge Patient seen today in follow for discharge planning. Out of bed to chair with physical therapy. He is stronger. Then looking forward to continuing aggressive rehab plans. Discharge plan discussed with patient today. I discussed at length with his and daughter by telephone Hospital Course This patient is a 82-year-old gentleman with a history of normal pressure hydrocephalus with DELIVERY RN shunt placed some years ago. Patient did have some altered mental status and weakness which appeared to be due to urinary retention and dehydration. He had some leukocytosis which improved. He also appeared to have signs and symptoms of bronchitis although his x-ray was normal. He was treated empirically with antibiotics and a urinary catheter was placed with 2 L immediately expressed. Patient did perk up quite a bit. He was seen by neurology due to the concern for his mental status and encephalopathy. Patient was recommended for medical management if things do not improve then consider an MRI as his shunt has been managed by the neurosurgery team. Fortunately for this patient within less than 24 hours the patient parked up quite remarkably. He was moving much better. He did have some increased blood pressures which required management and the patient was discharged to rehab to continue with physical therapy. Pt Condition on Discharge: Good Discharge Disposition: Discharge to SNF Discharge Time: <= 30 minutes Discharge Instructions DIET: Follow Instructions for: Heart Healthy Diet Speech Therapy-Diet Recommends: Mechanical Soft Activities you can perform: Regular-No Restrictions New Medications: Atorvastatin (Atorvastatin) 40 Mg Tab 40 MG PO HS for Cholesterol Management, #31 TAB Continued Medications: Albuterol 8.5 GM Inh (Proair Hfa 8.5 GM Inh) 90 Mcg/Act Aer 2 PUFF INH Q4-6H PRN for SHORTNESS OF BREATH, #1 INHALER 0 Refills 108 mcg/actuation Amlodipine (Amlodipine) 5 Mg Tab 5 MG PO DAILY for Blood Pressure Management, #30 TAB 0 Refills Aspirin (Aspirin) 81 Mg Chew 81 MG CHEW DAILY, TAB 0 Refills Carvedilol (Carvedilol) 3.125 Mg Tab 3.125 MG PO BID, #60 TAB 0 Refills Lisinopril (Lisinopril) 20 Mg Tab 20 MG PO DAILY, #30 TAB 0 Refills Prednisone (Prednisone) 1 Mg Tab 5 MG PO DAILY for sarcoidosis Tamsulosin (Flomax) 0.4 Mg Cap 0.4 MG PO HS for Manage Prostate Problems, #30 CAP 0 Refills Discontinued Medications: Simvastatin (Simvastatin) 10 Mg Tab 10 MG PO DAILY for Cholesterol Management, #30 TAB 0 Refills Vonda Stanford MD Oct 25, 2017 11:12
[2017-10-25 11:50] VITALS: BP 129/71; PULSE 85; RESP 20; TEMP 96; O2SAT 97
== END 2017-10-25 13:36 | DRG 202 ==
LOC: PHED 19:35 → PHEDA 22:55 → PH3A 10-21 01:46 → OBSVTOIN 10-22 12:38
PROVIDERS: ADMIT Hospitalist; ATTEND Hospitalist
DX: J40 Bronchitis, not specified as acute or chronic (principal); G93.40 Encephalopathy, unspecified; G91.2 (Idiopathic) normal pressure hydrocephalus; D86.9 Sarcoidosis, unspecified; R47.01 Aphasia; Z98.2 Presence of cerebrospinal fluid drainage device; R33.8 Other retention of urine; N40.1 Benign prostatic hyperplasia with lower urinary tract symptoms; I10 Essential (primary) hypertension; R53.1 Weakness; I25.10 Atherosclerotic heart disease of native coronary artery without angina pectoris; Z95.5 Presence of coronary angioplasty implant and graft; L21.9 Seborrheic dermatitis, unspecified; R29.6 Repeated falls; E86.0 Dehydration; H91.90 Unspecified hearing loss, unspecified ear; E87.6 Hypokalemia
CPT/HCPCS: 51702; 70450; 71045; 76775; 80048; 80053; 81001; 82140; 82550; 83605; 83880; 84443; 84484; 85025; 85610; 85730; 87040; 93005; 93306; 93880; 95819; 96361; 96365; 96372; G0378; G8987-GP; G8988-GP; J1650; J1956; J7030; J7512

== ENCOUNTER 2018-01-09 10:22 | Emergency (ER) | payer MEDICARE, BC ==
[~2018-01-09] VITALS: Ht 177.8 cm; Wt 68.0 kg
[~2018-01-09 10:22] MED LIST changes: +ALBUAER3 INH; +AMLO5TAB2 PO; -AMLO5TAB22 PO; +ASPI-516 CHEW; +ATOR40TA16 PO; -AUGM875T PO; -BEDSMIS4; -CYAN1000P IM; -FISH120014 PO; -LISI-366 PO; +LISI-515 PO; -PLAV75TA PO; +PRED1 PO; -SIMV10 PO; -TAMS0.4C67 PO; +TAMS5CAP PO
[2018-01-09 10:24] VITALS: BP 140/68; PULSE 59; RESP 18; TEMP 98.3; O2SAT 97
[2018-01-09] MEDS ORDERED: SIMV10TA PO (10:42)
[2018-01-09] MEDS ORDERED: LISI10TA3 PO (10:42)
[2018-01-09] MEDS ORDERED: AMLO10TA2 PO (10:42)
[2018-01-09] MEDS ORDERED: LISI-519 PO (10:42)
[2018-01-09] MEDS ORDERED: SODIUM CHLORIDE 0.9% FLUSH 10 ML FLUSH IVF PRN (10:45)
--- NOTE | 2018-01-09 10:45 | PD ---
HPI Chief Complaint: Syncope/Near-Syncope Time Seen by Provider: 10:36 Travel History International Travel<30 days: No Contact w/Intl Traveler<30days: No Traveled to known affect area: No History of Present Illness HPI Patient is an 82-year-old male with history of hydrocephalus status post TRACK COACH shunt, hypertension, coronary artery disease, sarcoidosis, BPH, presents the emergency room after he had a syncopal episode. As per patient's , patient was at home today, reports that he went outside and went back to the home and had a syncopal episode while in his wheelchair. Patient was unconscious for a few minutes and was able to come to. Patient did not have any urinary incontinence during this episode. Patient did not have any trauma to his head or neck. Patient reports that he was completely asymptomatic prior to a syncopal episode, denies any chest pain or shortness of breath or headache or dizziness. Patient denies any nausea or vomiting, no abdominal pain, no complaints. As per patient's , patient's speech is at baseline, patient's mentation is at baseline. PFSH Past Medical History Asthma: No Heart Rhythm Problems: No Cancer: No Cardiovascular Problems: Yes (LBBB) High Cholesterol: Yes Chest Pain: No Congestive Heart Failure: No COPD: No Diabetes: No Diminished Hearing: Yes ([place]) Gastrointestinal Disorders: No Hepatitis: No Hiatal Hernia: No Hypertension: Yes Medical other: Yes (UNBALANCED ,FALLING) Musculoskeletal: No Neurologic: Yes (NORMAL PRESSURE HYDROCEPHALUS ) Psychiatric: No Reproductive: No Respiratory: Yes (PULMONARY SARCOIDOSIS) Sleep Apnea: No Thyroid Disease: No Tetanus Vaccination: Unknown Influenza Vaccination: Yes ?: Not Past Surgical History Abdominal Surgery: No Cardiac Surgery: No Ear Surgery: No Endocrine Surgery: No Eye Surgery: No Genitourinary Surgery: No Gynecologic Surgery: No Neurologic Surgery: No Oral Surgery: No Pacemaker: No Thoracic Surgery: No Other Surgery: Yes (SHUNT ) Social History Alcohol Use: No Tobacco Use: No Substance Use: No Allergies-Medications (Allergen,Severity, Reaction): Coded Allergies: MRI PRECAUTION (Verified Allergy, Unknown, shunt, 01/09/18) Reported Meds & Prescriptions Reported Meds & Active Scripts Active Reported Amlodipine (Amlodipine Besylate) 10 Mg Tab 10 Mg PO DAILY Lisinopril 5 Mg Tab 5 Mg PO DAILY Lisinopril 10 Mg Tab 10 Mg PO DAILY Simvastatin 10 Mg Tab 10 Mg PO DAILY Prednisone 1 Mg Tab 5 Mg PO DAILY Aspirin 81 Mg Chew 81 Mg CHEW DAILY Proair Hfa 8.5 GM Inh (Albuterol Sulfate) 90 Mcg/Act Aer 2 Puff INH Q4-6H PRN 108 mcg/actuation Flomax (Tamsulosin HCl) 0.4 Mg Cap 0.4 Mg PO HS Carvedilol 3.125 Mg Tab 6.25 Mg PO BID Review of Systems General / Constitutional: No: Fever Eyes: No: Visual changes HENT: No: Headaches Cardiovascular: No: Chest Pain or Discomfort Respiratory: No: Shortness of Breath Gastrointestinal: No: Abdominal Pain Genitourinary: No: Dysuria Musculoskeletal: No: Pain Skin: No Rash Neurologic: Positive: Syncope, No: Weakness Psychiatric: No: Depression Endocrine: No: Polydipsia Hematologic/Lymphatic: No: Easy Bruising Physical Exam Narrative GENERAL: NAD SKIN: Focused skin assessment warm/dry. HEAD: Atraumatic. Normocephalic. EYES: Pupils equal and round. No scleral icterus. No injection or drainage. ENT: No nasal bleeding or discharge. Mucous membranes pink and moist. NECK: Trachea midline. No JVD. CARDIOVASCULAR: Regular rate and rhythm. No murmur appreciated. RESPIRATORY: No accessory muscle use. Clear to auscultation. Breath sounds equal bilaterally. GASTROINTESTINAL: Abdomen soft, non-tender, nondistended. Hepatic and splenic margins not palpable. MUSCULOSKELETAL: No obvious deformities. No clubbing. No cyanosis. No edema. NEUROLOGICAL: Awake and alert. No obvious cranial nerve deficits. Motor grossly within normal limits. Normal speech. PSYCHIATRIC: Appropriate mood and affect; insight and judgment normal. Data Data Last Documented VS Vital Signs Date Time Temp Pulse Resp B/P (MAP) Pulse Ox O2 Delivery O2 Flow Rate FiO2 01/09/18 12:32 16 98 Room Air 01/09/18 12:29 62 01/09/18 10:24 98.3 Orders Orders Complete Blood Count With Diff (01/09/18 10:37) Comprehensive Metabolic Panel (01/09/18 10:37) Magnesium (Mg) (01/09/18 10:37) Ckmb (Isoenzyme) Profile (01/09/18 10:37) Troponin I (01/09/18 10:37) Act Partial Throm Time (Ptt) (01/09/18 10:37) Prothrombin Time / Inr (Pt) (01/09/18 10:37) Urinalysis - C+S If Indicated (01/09/18 10:37) Chest, Single Ap (01/09/18 10:37) Ct Brain W/O Iv Contrast(Rout) (01/09/18 10:37) Blood Glucose (01/09/18 10:37) Ecg Monitoring (01/09/18 10:37) Iv Access Insert/Monitor (01/09/18 10:37) Oximetry (01/09/18 10:37) Sodium Chloride 0.9% Flush (Ns Flush) (01/09/18 10:45) Electrocardiogram (01/09/18 10:30) Labs Laboratory Tests Test 01/09/18 10:40 White Blood Count 10.6 TH/MM3 Red Blood Count 4.30 MIL/MM3 Hemoglobin 13.4 GM/DL Hematocrit 39.1 % Mean Corpuscular Volume 90.9 FL Mean Corpuscular Hemoglobin 31.2 PG Mean Corpuscular Hemoglobin Concent 34.3 % Red Cell Distribution Width 12.9 % Platelet Count 272 TH/MM3 Mean Platelet Volume 8.3 FL Neutrophils (%) (Auto) 83.5 % Lymphocytes (%) (Auto) 10.2 % Monocytes (%) (Auto) 5.6 % Eosinophils (%) (Auto) 0.6 % Basophils (%) (Auto) 0.1 % Neutrophils # (Auto) 8.8 TH/MM3 Lymphocytes # (Auto) 1.1 TH/MM3 Monocytes # (Auto) 0.6 TH/MM3 Eosinophils # (Auto) 0.1 TH/MM3 Basophils # (Auto) 0.0 TH/MM3 CBC Comment DIFF FINAL Differential Comment Prothrombin Time 10.3 SEC Prothromb Time International Ratio 1.0 RATIO Activated Partial Thromboplast Time 22.6 SEC Blood Urea Nitrogen 12 MG/DL Creatinine 1.00 MG/DL Random Glucose 107 MG/DL Total Protein 6.6 GM/DL Albumin 3.3 GM/DL Calcium Level 8.9 MG/DL Magnesium Level 2.2 MG/DL Alkaline Phosphatase 79 U/L Aspartate Amino Transf (AST/SGOT) 11 U/L Alanine Aminotransferase (ALT/SGPT) 20 U/L Total Bilirubin 0.5 MG/DL Sodium Level 140 MEQ/L Potassium Level 3.7 MEQ/L Chloride Level 102 MEQ/L Carbon Dioxide Level 32.0 MEQ/L Anion Gap 6 MEQ/L Estimat Glomerular Filtration Rate 72 ML/MIN Total Creatine Kinase 32 U/L Troponin I LESS THAN 0.02 NG/ML MDM Medical Decision Making Medical Screen Exam Complete: Yes Emergency Medical Condition: Yes Medical Record Reviewed: Yes Interpretation(s) EKG at 1030: Sinus bradycardia at 57bpm, qt/qtc: 485/479, 1st degree av block, lbbb Vital Signs Date Time Temp Pulse Resp B/P (MAP) Pulse Ox O2 Delivery O2 Flow Rate FiO2 01/09/18 10:27 59 Room Air 01/09/18 10:24 98.3 59 18 140/68 (92) 97 Differential Diagnosis Syncope, ACS, arrhythmia, electrolyte abnormality, NPH Narrative Course Patient is an 82-year-old male who presents the emergency room after he suffered a syncopal episode today. Patient presents the emergency room asymptomatic with no complaints. During the course of the patients emergency department visit, the patients history, examination, and differential diagnosis were reviewed with the patient. The patient was placed on a phototypesetting equipment monitor with oximetry and frequent blood pressure monitoring. The patient had an IV access obtained and blood work sent for analysis. The patients laboratory studies were reviewed and remarkable for Laboratory Tests Test 01/09/18 10:40 White Blood Count 10.6 TH/MM3 (4.0-11.0) Red Blood Count 4.30 MIL/MM3 (4.50-5.90) Hemoglobin 13.4 GM/DL (13.0-17.0) Hematocrit 39.1 % (39.0-51.0) Mean Corpuscular Volume 90.9 FL (80.0-100.0) Mean Corpuscular Hemoglobin 31.2 PG (27.0-34.0) Mean Corpuscular Hemoglobin Concent 34.3 % (32.0-36.0) Red Cell Distribution Width 12.9 % (11.6-17.2) Platelet Count 272 TH/MM3 (150-450) Mean Platelet Volume 8.3 FL (7.0-11.0) Neutrophils (%) (Auto) 83.5 % (16.0-70.0) Lymphocytes (%) (Auto) 10.2 % (9.0-44.0) Monocytes (%) (Auto) 5.6 % (0.0-8.0) Eosinophils (%) (Auto) 0.6 % (0.0-4.0) Basophils (%) (Auto) 0.1 % (0.0-2.0) Neutrophils # (Auto) 8.8 TH/MM3 (1.8-7.7) Lymphocytes # (Auto) 1.1 TH/MM3 (1.0-4.8) Monocytes # (Auto) 0.6 TH/MM3 (0-0.9) Eosinophils # (Auto) 0.1 TH/MM3 (0-0.4) Basophils # (Auto) 0.0 TH/MM3 (0-0.2) CBC Comment DIFF FINAL Differential Comment Prothrombin Time 10.3 SEC (9.8-11.6) Prothromb Time International Ratio 1.0 RATIO Activated Partial Thromboplast Time 22.6 SEC (24.3-30.1) Blood Urea Nitrogen 12 MG/DL (7-18) Creatinine 1.00 MG/DL (0.60-1.30) Random Glucose 107 MG/DL (74-106) Total Protein 6.6 GM/DL (6.4-8.2) Albumin 3.3 GM/DL (3.4-5.0) Calcium Level 8.9 MG/DL (8.5-10.1) Magnesium Level 2.2 MG/DL (1.5-2.5) Alkaline Phosphatase 79 U/L (45-117) Aspartate Amino Transf (AST/SGOT) 11 U/L (15-37) Alanine Aminotransferase (ALT/SGPT) 20 U/L (12-78) Total Bilirubin 0.5 MG/DL (0.2-1.0) Sodium Level 140 MEQ/L (136-145) Potassium Level 3.7 MEQ/L (3.5-5.1) Chloride Level 102 MEQ/L (98-107) Carbon Dioxide Level 32.0 MEQ/L (21.0-32.0) Anion Gap 6 MEQ/L (5-15) Estimat Glomerular Filtration Rate 72 ML/MIN (>89) Total Creatine Kinase 32 U/L (39-308) Troponin I LESS THAN 0.02 NG/ML Patient was initially refusing CT of the head, patient now agreeable I also discussed with patient need for admission to the hospital for syncope workup, patient refuses admission to the hospital, he has an appointment with his neurologist, Dr. Celaya at 2 PM, she would like to make this appointment. Patient reports that hospital admissions make him nervous and anxious, he does not want to be admitted to the hospital. Patient requests to leave AGAINST MEDICAL ADVICE, patient's at bedside, patient's daughter who is on the phone understands risks of leaving AGAINST MEDICAL ADVICE. AMA: The risks of leaving against medical advice without further evaluation treatment were discussed with the patient. These risks include cardiac dysfunction, cardiac dysrhythmia, possible heart attack, possible stroke or . The patient indicated understanding of these risks and appeared to have the capacity to make this decision. Patient understands that he may return to the emergency room at any time should he have return of symptoms. Diagnosis Primary Impression: Syncope and collapse Additional Impression: Left against medical advice Admitting Information Admitting Physician Requests: Observation Patient Instructions: General Instructions Additional Instructions: Please follow-up with her neurologist as well as her grant specialist and your primary care doctor as soon as possible Return to the ER if symptoms worsen or progress Return to the ER as needed You may return to the emergency room at any time should you have return of symptoms. Disposition: 07 AGAINST MEDICAL ADVICE Condition: Serious Evelyn Oneal DO January 09, 2018 10:45
[2018-01-09 10:50] LABS: AUTOMATED NEUTROPHIL # 8.8 TH/MM3 (1.8-7.7); BASOPHIL % 0.1 % (0.0-2.0); EOSINOPHIL # 0.1 TH/MM3 (0-0.4); EOSINOPHIL % 0.6 % (0.0-4.0); HEMATOCRIT 39.1 % (39.0-51.0); HEMOGLOBIN 13.4 GM/DL (13.0-17.0); LYMPH % 10.2 % (9.0-44.0); LYMPHOCYTE # 1.1 TH/MM3 (1.0-4.8); MEAN CELL VOLUME 90.9 FL (80.0-100.0); MEAN CORPUSCULAR HEMOGLOBIN 31.2 PG (27.0-34.0); MEAN CORPUSCULAR HGB CONC 34.3 % (32.0-36.0); MEAN PLATELET VOLUME 8.3 FL (7.0-11.0); MONO % 5.6 % (0.0-8.0); MONOCYTE # 0.6 TH/MM3 (0-0.9); NEUT % 83.5 % (16.0-70.0); PLATELET COUNT 272 TH/MM3 (150-450); RED CELL DISTRIBUTION WIDTH 12.9 % (11.6-17.2); WHITE BLOOD COUNT 10.6 TH/MM3 (4.0-11.0)
[2018-01-09 11:08] LABS: CHLORIDE 102 MEQ/L (98-107); SODIUM (NA) 140 MEQ/L (136-145)
[2018-01-09 11:11] LABS: CALCIUM 8.9 MG/DL (8.5-10.1)
[2018-01-09 11:12] LABS: ALBUMIN 3.3 GM/DL (3.4-5.0); BLOOD UREA NITROGEN 12 MG/DL (7-18); GLUCOSE,RANDOM 107 MG/DL (74-106); MAGNESIUM 2.2 MG/DL (1.5-2.5); PROTHROMBIN TIME - PATIENT 10.3 SEC (9.8-11.6)
[2018-01-09 11:15] LABS: ALT (GPT) 20 U/L (12-78); AST (GOT) 11 U/L (15-37); GLOMERULAR FILTRATION RATE 72 ML/MIN (>89)
[2018-01-09 11:17] LABS: TOTAL BILIRUBIN ADULT 0.5 MG/DL (0.2-1.0); TOTAL PROTEIN 6.6 GM/DL (6.4-8.2)
[2018-01-09 11:18] LABS: ALKALINE PHOSPHATASE 79 U/L (45-117)
[2018-01-09 11:20] LABS: TROPONIN I LESS THAN 0.02 NG/ML (0.02-0.05)
--- NOTE | 2018-01-09 12:02 | RADRPT ---
EXAM DATE: 01/09/2018 11:38 AM EDT AGE/SEX: 82 years / Male INDICATIONS: Syncope. CLINICAL DATA: This is the patient's initial encounter. Patient reports that signs and symptoms have been present for 1 day and indicates a pain score of 0/10. MEDICAL/SURGICAL HISTORY: Hypertension. Hypercholesterolemia. pulmonary sarcoidosis . shunt COMPARISON: [facility], CHEST SINGLE AP, 10/20/2017. . FINDINGS: A single AP view of the chest demonstrates the lungs to be symmetrically aerated without evidence of mass, infiltrate or effusion. The cardiomediastinal contours are unremarkable. Osseous structures a re intact. CONCLUSION: No acute pulmonary infiltrates. No significant change Electronically signed by: Anton Clayton MD 01/09/2018 12:00 PM EDT
[2018-01-09 12:29] VITALS: BP 133/62; PULSE 62; RESP 16; O2SAT 98
[2018-01-09 12:32] VITALS: RESP 16; O2SAT 98
--- NOTE | 2018-01-09 12:41 | RADRPT ---
EXAM DATE: 01/09/2018 12:33 PM EDT AGE/SEX: 82 years / Male INDICATIONS: Syncopal episode. CLINICAL DATA: This is the patient's initial encounter. Patient reports that signs and symptoms have been present for 1 day and indicates a pain score of 0/10. MEDICAL/SURGICAL HISTORY: Hypertension. Hydrocephalus. . AV Shunt. RADIATION DOSE: 60.39 CTDI (mGy) COMPARISON: . TECHNIQUE: CT of the head without contrast. Using automated exposure control and adjustment of the mA and/or kV according to patient size, radiation dose was kept as low as reasonably achievable to ob tain optimal diagnostic quality images. FINDINGS: Cerebrum: Mild stable ventricular prominence. [employer] shunt enters the right frontoparietal region with t he tip in the anterior horn of the left lateral ventricle. Stable, symmetric cortical atrophy. No ev idence of midline shift, mass lesion, hemorrhage or acute infarction. No extraaxial fluid collection s are seen. Posterior Fossa: The cerebellum and brainstem are intact. The 4th ventricle is midline. The cerebe llopontine angle is unremarkable. Extracranial: The visualized portion of the orbits is intact. Skull: The calvaria is intact. No evidence of skull fracture. CONCLUSION: 1. Stable, symmetric cortical atrophy with mild ventricular prominence, unchanged. 2. [employer] shunt enters the right frontoparietal region and the tip is positioned in the anterior horn of the left lateral ventricle. 3. Nothing acute. Electronically signed by: Ghanshyam Burciaga MD 01/09/2018 12:39 PM EDT
[2018-01-09 13:10] LABS: BILIRUBIN, URINE NEG (NEG); BLOOD, URINE NEG (NEG); GLUCOSE,URINE NEG (NEG); KETONE, URINE NEG (NEG); NITRITE,URINE NEG (NEG); URINE COLOR YELLOW (YELLW/STRAW); URINE LEUKOCYTE ESTERASE TRACE (NEG)
[2018-01-09 13:15] LABS: SQUAMOUS EPITHELIAL CELL URINE 0-5 /hpf (0-5)
--- NOTE | 2018-01-11 08:34 | EKG ---
Date Performed: 01/09/2018 Time Performed: 10:30:16 PTAGE: 82 years EKG: SINUS BRADYCARDIA WITH FIRST DEGREE AV BLOCK MARKED LEFT AXIS DEVIATION LEFT BUNDLE BRANCH BLOCK ABNORMAL ECG INTERPRETATION BASED ON A DEFAULT AGE OF 40 YEARS NO PREVIOUS TRACING DOCTOR: Link Wei Interpretating Date/Time 01/11/2018 08:20:47
== END 2018-01-09 13:38 | disposition left against medical advice (07) ==
LOC: PHED 10:22
DX: R55 Syncope and collapse (principal); R94.31 Abnormal electrocardiogram [ECG] [EKG]; Z53.29 Procedure and treatment not carried out because of patient's decision for other reasons; I10 Essential (primary) hypertension; I25.10 Atherosclerotic heart disease of native coronary artery without angina pectoris; E78.00 Pure hypercholesterolemia, unspecified; G91.2 (Idiopathic) normal pressure hydrocephalus; Z86.79 Personal history of other diseases of the circulatory system; Z87.09 Personal history of other diseases of the respiratory system
CPT/HCPCS: 70450; 71045; 80053; 81001; 82550; 83735; 84484; 85025; 85610; 85730; 93005; 99285